=== PATIENT | female | born 1980 | race Caucasian/White ===

== ENCOUNTER 2018-09-05 10:51 | Outpatient (REF) | payer BC, SELFPAY ==
[2018-09-05 21:38] LABS: Anion Gap 9.1 mmol/L (3-11); BUN 14 mg/dL (7-18); CO2 26.9 mmol/L (21.0-32.0); CREATININE 0.63 mg/dL (0.55-1.02); Calcium 9.3 mg/dL (8.5-10.1); Chloride 102 mmol/L (98-107); Glucose 124 mg/dL (70-100); Potassium 4.6 mmol/L (3.5-5.1); Sodium 138 mmol/L (136-145)
[2018-09-05 22:40] LABS: COMMENT (LAB VIEW ONLY) 92.48 mg/dL; Microalb ug/mg Crea 8.4 ug/mg Cr
== END 2018-09-05 11:11 ==
LOC: NCHCN 10:51
PROVIDERS: PCP Nurse Practitioner Family; Visit Provider Nurse Practitioner Family
DX: E11.9 Type 2 diabetes mellitus without complications (principal); R06.83 Snoring; R60.9 Edema, unspecified; M22.2X9 Patellofemoral disorders, unspecified knee
CPT/HCPCS: 80048; 82043; 82570

== ENCOUNTER 2018-09-05 12:24 | Outpatient (REF) | payer BC, SELFPAY | END 2018-09-05 12:44 | LOC: NCHCN 12:24 | PROVIDERS: PCP Nurse Practitioner Family; Visit Provider Nurse Practitioner Family | DX: E11.9 Type 2 diabetes mellitus without complications (principal) ==

== ENCOUNTER 2020-03-26 14:14 | Outpatient (REF) | payer BC, SELFPAY ==
[2020-03-26 21:32] LABS: Mean Corp. HGB Concentration 30.6 g/dL (32.0-36.0); Mean Corpuscular Hemoglobin 21.8 pg (27.0-33.0); Mean Corpuscular Volume 71.4 fL (80-95); Mean Platelet Volume 10.3 fL (8.0-11.0); Platelet Count 447 x1000/uL (130-400); RBC 5.04 m/cumm (4.00-5.20); RBC Distribution Width 16.9 % (11.7-14.6); White Blood Cell Count 10.05 k/cumm (4.4-10.8)
[2020-03-26 22:16] LABS: Anion Gap 7.8 mmol/L (3-11); BUN 10 mg/dL (7-18); CO2 28.2 mmol/L (21.0-32.0); CREATININE 0.82 mg/dL (0.55-1.02); Calcium 9.3 mg/dL (8.5-10.1); Calculated LDL 114 mg/dL (<100); Chloride 101 mmol/L (98-107); Cholesterol 203 mg/dL (<200); Glucose 144 mg/dL (74-106); HDL Cholesterol 68 mg/dL (40-60); Potassium 4.1 mmol/L (3.5-5.1); Sodium 137 mmol/L (136-145); Triglyceride 109 mg/dL (<150); Vitamin B12 386 pg/mL (193-986)
[2020-03-26 22:17] LABS: COMMENT (LAB VIEW ONLY) 110.98 mg/dL; Microalb ug/mg Crea 4.1 ug/mg Cr
== END 2020-03-26 14:34 ==
LOC: NCHCN 14:14
PROVIDERS: PCP Nurse Practitioner Family; Visit Provider Nurse Practitioner Community Health
DX: R51 Headache (principal); E11.9 Type 2 diabetes mellitus without complications; E66.01 Morbid (severe) obesity due to excess calories; Z00.00 Encounter for general adult medical examination without abnormal findings
CPT/HCPCS: 80048; 80061; 85027; 82043; 82570; 82607

== ENCOUNTER 2020-03-31 18:11 | Outpatient (REF) | payer BC, SELFPAY ==
[2020-03-31 21:57] LABS: Ferritin 17 ng/mL (8-252)
== END 2020-03-31 18:31 ==
LOC: NCHCN 18:11
PROVIDERS: PCP Nurse Practitioner Family; Visit Provider Nurse Practitioner Community Health
DX: D74.9 Methemoglobinemia, unspecified (principal)
CPT/HCPCS: 82728

== ENCOUNTER 2020-07-12 22:54 | Outpatient (REF) | payer BC, SELFPAY ==
[2020-07-12 21:55] LABS: HCT 39.4 % (36.0-46.0); HGB 11.7 g/dL (11.2-15.7); MCH 23.8 pg (27.0-33.0); MCHC 29.7 % (32.0-36.0); MCV 80.1 fL (80-95); MPV 10.5 fL (8.0-11.0); Platelet Count 418 10^3/uL (130-400); RBC 4.92 10^6/uL (3.93-5.22); RDW 16.7 % (11.7-14.6); RDW-SD 48.4 fL; WBC 8.23 10^3/uL (4.4-10.8)
[2020-07-12 22:34] LABS: Iron 26 ug/dL (50-170); Total Iron Binding Capacity 307 ug/dL (250-450); Transferrin Sat 8 % (15-50)
[2020-07-12 22:47] LABS: Ferritin 21 ng/mL (8-252)
== END 2020-07-12 23:14 ==
LOC: NCHCN 22:54
PROVIDERS: PCP Nurse Practitioner Family; Visit Provider Nurse Practitioner Family
DX: D50.9 Iron deficiency anemia, unspecified (principal); E11.9 Type 2 diabetes mellitus without complications; L85.3 Xerosis cutis; M22.2X9 Patellofemoral disorders, unspecified knee
CPT/HCPCS: 85027; 82728; 83540; 83550

== ENCOUNTER 2020-09-02 19:37 | Outpatient (REF) | payer BC, SELFPAY ==
[2020-09-02 21:28] LABS: HCT 35.5 % (36.0-46.0); HGB 10.7 g/dL (11.2-15.7); MCH 24.4 pg (27.0-33.0); MCHC 30.1 % (32.0-36.0); MCV 80.9 fL (80-95); MPV 10.2 fL (8.0-11.0); Platelet Count 376 10^3/uL (130-400); RBC 4.39 10^6/uL (3.93-5.22); RDW 15.4 % (11.7-14.6); RDW-SD 45.3 fL
[2020-09-02 21:40] LABS: Iron 27 ug/dL (50-170)
[2020-09-02 21:54] LABS: Ferritin 19 ng/mL (8-252)
== END 2020-09-02 19:57 ==
LOC: NCHCN 19:37
PROVIDERS: PCP Nurse Practitioner Family; Visit Provider Nurse Practitioner Family
DX: D50.9 Iron deficiency anemia, unspecified (principal)
CPT/HCPCS: 85027; 82728; 83540

== ENCOUNTER 2020-11-04 15:08 | Outpatient (REF) | payer BC, SELFPAY ==
[2020-11-04 14:24] LABS: HCT 37.4 % (36.0-46.0); HGB 11.8 g/dL (11.2-15.7); MCHC 31.6 % (32.0-36.0); MCV 79.2 fL (80-95); MPV 10.4 fL (8.0-11.0); Platelet Count 369 10^3/uL (130-400); RBC 4.72 10^6/uL (3.93-5.22); RDW 15.1 % (11.7-14.6); RDW-SD 43.3 fL; WBC 8.37 10^3/uL (4.4-10.8)
[2020-11-04 15:50] LABS: Iron 37 ug/dL (50-170); Total Iron Binding Capacity 295 ug/dL (250-450); Transferrin Sat 13 % (15-50)
[2020-11-04 16:03] LABS: Ferritin 35 ng/mL (8-252)
== END 2020-11-04 15:09 | disposition home or self-care (01) ==
LOC: NCHCN 15:08
PROVIDERS: PCP Nurse Practitioner Family; Visit Provider Nurse Practitioner Family
DX: D50.9 Iron deficiency anemia, unspecified (principal)
CPT/HCPCS: 85027; 82728; 83540; 83550

== ENCOUNTER 2021-01-13 17:44 | Outpatient (REF) | payer BC, SELFPAY ==
[2021-01-13 13:40] LABS: HCT 38.9 % (36.0-46.0); MCH 25.4 pg (27.0-33.0); MCHC 30.8 % (32.0-36.0); MCV 82.4 fL (80-95); MPV 10.3 fL (8.0-11.0); Platelet Count 403 10^3/uL (130-400); RBC 4.72 10^6/uL (3.93-5.22); RDW 14.5 % (11.7-14.6); RDW-SD 44.3 fL; WBC 8.34 10^3/uL (4.4-10.8)
[2021-01-13 14:03] LABS: Ferritin 30 ng/mL (8-252)
[2021-01-17 13:04] LABS: IgA 200 mg/dL (85-499); Interpretation (See Note); Tissue Transglutaminase IgA <1.2 U/mL (<4.0)
== END 2021-01-13 17:45 | disposition home or self-care (01) ==
LOC: NCHCN 17:44
PROVIDERS: PCP Nurse Practitioner Family; Visit Provider Nurse Practitioner Family
DX: E11.9 Type 2 diabetes mellitus without complications (principal); D50.9 Iron deficiency anemia, unspecified; L30.9 Dermatitis, unspecified
CPT/HCPCS: 82784; 83516; 85027; 82728

== ENCOUNTER 2021-07-12 14:34 | Outpatient (REF) | payer BC, SELFPAY ==
[2021-07-12 15:21] LABS: HCT 41.1 % (36.0-46.0); HGB 12.6 g/dL (11.2-15.7); MCH 24.4 pg (27.0-33.0); MCHC 30.7 % (32.0-36.0); MCV 79.7 fL (80-95); MPV 10.8 fL (8.0-11.0); Platelet Count 351 10^3/uL (130-400); RBC 5.16 10^6/uL (3.93-5.22); RDW 14.3 % (11.7-14.6); RDW-SD 40.9 fL; WBC 7.94 10^3/uL (4.4-10.8)
[2021-07-12 15:57] LABS: Anion Gap 5.7 mmol/L (3-11); BUN 10 mg/dL (7-18); CO2 31.3 mmol/L (21.0-32.0); CREATININE 0.7 mg/dL (0.55-1.02); Calcium 9.2 mg/dL (8.5-10.1); Chloride 103 mmol/L (98-107); Glucose 323 mg/dL (74-106); Potassium 4.4 mmol/L (3.5-5.1); Sodium 140 mmol/L (136-145)
[2021-07-12 16:13] LABS: Hemoglobin A1C 12.3 % (<5.7)
[2021-07-14 04:58] LABS: Vitamin D 25 Total 17.6 ng/mL (30-100)
[2021-07-14 14:11] LABS: Iron 28 ug/dL (50-170); Total Iron Binding Capacity 268 ug/dL (250-450); Transferrin Sat 10 % (15-50)
[2021-07-14 14:37] LABS: Ferritin 39 ng/mL (8-252); Vitamin B12 683 pg/mL (193-986)
== END 2021-07-12 14:35 | disposition home or self-care (01) ==
LOC: NCHCN 14:34
PROVIDERS: PCP Nurse Practitioner Family; Visit Provider Nurse Practitioner Family
DX: E11.9 Type 2 diabetes mellitus without complications (principal); R06.83 Snoring; R53.83 Other fatigue; Z86.2 Personal history of diseases of the blood and blood-forming organs and certain disorders involving the immune mechanism
CPT/HCPCS: 80048; 82306; 85027; 82607; 82728; 83036

== ENCOUNTER 2021-10-18 17:10 | Outpatient (REF) | payer BC, SELFPAY ==
[2021-10-18 21:48] LABS: Hemoglobin A1C 8.3 % (<5.7)
[2021-10-20 05:55] LABS: Vitamin D 25 Total 25.4 ng/mL (30-100)
== END 2021-10-18 17:11 | disposition home or self-care (01) ==
LOC: NCHCN 17:10
PROVIDERS: PCP Nurse Practitioner Family; Visit Provider Nurse Practitioner Family
DX: E11.9 Type 2 diabetes mellitus without complications (principal); E55.9 Vitamin D deficiency, unspecified
CPT/HCPCS: 82306; 83036

== ENCOUNTER 2021-10-20 11:48 | Outpatient (REF) | payer BC, SELFPAY ==
[2021-10-20 15:23] LABS: COMMENT (LAB VIEW ONLY) 138.26 mg/dL; Microalb ug/mg Crea 3.6 ug/mg Cr
== END 2021-10-20 11:49 | disposition home or self-care (01) ==
LOC: NCHCN 11:48
PROVIDERS: PCP Nurse Practitioner Family; Visit Provider Nurse Practitioner Family
DX: E11.9 Type 2 diabetes mellitus without complications (principal)
CPT/HCPCS: 82043; 82570

== ENCOUNTER 2022-02-16 10:13 | Outpatient (REF) | payer BC, SELFPAY ==
[2022-02-16 21:03] LABS: HCT 40.7 % (36.0-46.0); HGB 12.8 g/dL (11.2-15.7); MCH 25.9 pg (27.0-33.0); MCHC 31.4 % (32.0-36.0); MCV 82 fL (80-95); Platelet Count 446 10^3/uL (130-400); RBC 4.94 10^6/uL (3.93-5.22); RDW 14.6 % (11.7-14.6); RDW-SD 43.8 fL; WBC 11.37 10^3/uL (4.4-10.8)
[2022-02-16 21:09] LABS: Iron 27 ug/dL (50-170); Total Iron Binding Capacity 298 ug/dL (250-450); Transferrin Sat 9 % (15-50)
[2022-02-16 21:25] LABS: Hemoglobin A1C 7.6 % (<5.7)
[2022-02-16 21:31] LABS: ALT 32 U/L (14-59); AST 17 U/L (15-37); Albumin 3.5 g/dL (3.4-5.0); Alkaline Phosphatase 136 U/L (46-116); Anion Gap 7.8 mmol/L (3-11); BUN 17 mg/dL (7-18); Bilirubin, Total 0.2 mg/dL (0.2-1.0); CO2 29.2 mmol/L (21.0-32.0); CREATININE 0.8 mg/dL (0.55-1.02); Calcium 9.2 mg/dL (8.5-10.1); Chloride 99 mmol/L (98-107); Glucose 207 mg/dL (74-106); Potassium 4.7 mmol/L (3.5-5.1); Sodium 136 mmol/L (136-145); Total Protein 7.8 g/dL (6.4-8.2)
[2022-02-16 21:32] LABS: Vitamin D 25 Total 21.6 ng/mL (30-100)
== END 2022-02-16 10:14 | disposition home or self-care (01) ==
LOC: NCHCN 10:13
PROVIDERS: PCP Nurse Practitioner Family; Visit Provider Nurse Practitioner Family
DX: E55.9 Vitamin D deficiency, unspecified (principal); E11.9 Type 2 diabetes mellitus without complications; E66.01 Morbid (severe) obesity due to excess calories; Z86.2 Personal history of diseases of the blood and blood-forming organs and certain disorders involving the immune mechanism
CPT/HCPCS: 80053; 82306; 85027; 83036; 83540; 83550

== ENCOUNTER 2023-04-19 14:51 | Outpatient (REF) | payer BC, SELFPAY ==
[2023-04-19 21:04] LABS: HCT 38.5 % (36.0-46.0); HGB 12.1 g/dL (11.2-15.7); MCH 25.1 pg (27.0-33.0); MCHC 31.4 % (32.0-36.0); MCV 80 fL (80-95); Platelet Count 382 10^3/uL (130-400); RBC 4.82 10^6/uL (3.93-5.22); RDW-SD 40.4 fL; WBC 9.69 10^3/uL (4.4-10.8)
[2023-04-19 21:14] LABS: Iron 30 ug/dL (50-170); Total Iron Binding Capacity 254 ug/dL (250-450); Transferrin Sat 12 % (15-50)
[2023-04-19 21:17] LABS: ALT 22 U/L (14-59); AST 12 U/L (15-37); Albumin 3.3 g/dL (3.4-5.0); Alkaline Phosphatase 123 U/L (46-116); Anion Gap 6.7 mmol/L (3-11); BUN 12 mg/dL (7-18); Bilirubin, Total 0.3 mg/dL (0.2-1.0); CO2 31.3 mmol/L (21.0-32.0); CREATININE 0.7 mg/dL (0.55-1.02); Calculated LDL 115 mg/dL (<100); Chloride 102 mmol/L (98-107); Cholesterol 201 mg/dL (<200); Estimated GFR 110.67 (mL/min/1.73m2); Glucose 200 mg/dL (74-106); HDL Cholesterol 70 mg/dL (40-60); Sodium 140 mmol/L (136-145); Total Protein 7.3 g/dL (6.4-8.2); Triglyceride 84 mg/dL (<150)
[2023-04-19 21:21] LABS: COMMENT (LAB VIEW ONLY) 125.43 mg/dL; Microalb ug/mg Crea 6.5 ug/mg Cr
[2023-04-19 21:28] LABS: Hemoglobin A1C 8.8 % (<5.7)
[2023-04-19 21:37] LABS: Vitamin D 25 Total 14.6 ng/mL (30-100)
== END 2023-04-19 14:52 | disposition home or self-care (01) ==
LOC: NCHCN 14:51
PROVIDERS: PCP Nurse Practitioner Family; Visit Provider Nurse Practitioner Family
DX: E11.9 Type 2 diabetes mellitus without complications (principal); E55.9 Vitamin D deficiency, unspecified; R53.83 Other fatigue; E66.01 Morbid (severe) obesity due to excess calories; Z86.2 Personal history of diseases of the blood and blood-forming organs and certain disorders involving the immune mechanism
CPT/HCPCS: 80053; 80061; 82306; 85027; 82043; 82570; 83036; 83540; 83550

== ENCOUNTER 2024-04-15 17:57 | Outpatient (REF) | payer BC, SELFPAY ==
[2024-04-15 21:21] LABS: HCT 36.6 % (36.0-46.0); HGB 11.6 g/dL (11.2-15.7); MCH 25.5 pg (27.0-33.0); MCHC 31.7 % (32.0-36.0); MCV 80 fL (80-95); MPV 10.2 fL (8.0-11.0); Platelet Count 355 10^3/uL (130-400); RBC 4.55 10^6/uL (3.93-5.22); RDW 14.6 % (11.7-14.6); RDW-SD 42.5 fL; WBC 8.81 10^3/uL (4.4-10.8)
[2024-04-15 21:48] LABS: COMMENT (LAB VIEW ONLY) 112.92 mg/dL; Microalb ug/mg Crea 16.1 ug/mg Cr
[2024-04-15 21:50] LABS: Iron 24 ug/dL (50-170); Total Iron Binding Capacity 302 ug/dL (250-450); Transferrin Sat 8 % (15-50)
[2024-04-15 21:56] LABS: ALT 23 U/L (14-59); AST 16 U/L (15-37); Alkaline Phosphatase 100 U/L (46-116); BUN 13 mg/dL (7-18); CREATININE 0.6 mg/dL (0.55-1.02); Calcium 8.6 mg/dL (8.5-10.1); Calculated LDL 78 mg/dL (<100); Chloride 105 mmol/L (98-107); Cholesterol 174 mg/dL (<200); Estimated GFR 114.15 (mL/min/1.73m2); Glucose 156 mg/dL (74-106); HDL Cholesterol 76 mg/dL (40-60); Sodium 140 mmol/L (136-145); TSH 1.34 uIU/Ml (0.36-3.74); Total Protein 7.3 g/dL (6.4-8.2); Triglyceride 104 mg/dL (<150); Vitamin D 25 Total 16.9 ng/mL (30-100)
== END 2024-04-15 17:58 | disposition home or self-care (01) ==
LOC: NCHCN 17:57
PROVIDERS: PCP Nurse Practitioner Family; Visit Provider Nurse Practitioner Family
DX: E11.9 Type 2 diabetes mellitus without complications (principal); E55.9 Vitamin D deficiency, unspecified; Z86.2 Personal history of diseases of the blood and blood-forming organs and certain disorders involving the immune mechanism; Z13.29 Encounter for screening for other suspected endocrine disorder; R79.89 Other specified abnormal findings of blood chemistry
CPT/HCPCS: 80053; 80061; 82306; 85027; 82043; 82570; 83540; 83550; 84443

== ENCOUNTER 2024-05-27 17:12 | Outpatient (REF) | payer BC, SELFPAY | END 2024-05-27 17:13 | disposition home or self-care (01) | LOC: NCHCN 17:12 | PROVIDERS: PCP Nurse Practitioner Family; Visit Provider Nurse Practitioner Family | DX: L08.9 Local infection of the skin and subcutaneous tissue, unspecified (principal); B95.62 Methicillin resistant Staphylococcus aureus infection as the cause of diseases classified elsewhere | CPT/HCPCS: 87077; 87070; 87186; 87205 ==

== ENCOUNTER 2024-10-21 13:33 | Outpatient (REF) | payer BC, SELFPAY ==
[2024-10-21 16:19] LABS: HGB 11.6 g/dL (11.2-15.7); MCH 25.2 pg (27.0-33.0); MCHC 31.4 % (32.0-36.0); MCV 80 fL (80-95); MPV 10.3 fL (8.0-11.0); Platelet Count 402 10^3/uL (130-400); RBC 4.61 10^6/uL (3.93-5.22); RDW 14.6 % (11.7-14.6); WBC 8.79 10^3/uL (4.4-10.8)
[2024-10-21 16:54] LABS: Iron 28 ug/dL (50-170); Total Iron Binding Capacity 276 ug/dL (250-450); Transferrin Sat 10 % (15-50)
[2024-10-21 17:10] LABS: ALT 24 U/L (14-59); AST 15 U/L (15-37); Alkaline Phosphatase 138 U/L (46-116); Anion Gap 12.9 mmol/L (3-11); BUN 17 mg/dL (7-18); Bilirubin, Total 0.23 mg/dL (0.2-1.0); CO2 24.1 mmol/L (21.0-32.0); CREATININE 0.7 mg/dL (0.55-1.02); Calculated LDL 55 mg/dL (<100); Chloride 103 mmol/L (98-107); Cholesterol 135 mg/dL (<200); Estimated GFR 109.98 (mL/min/1.73m2); Glucose 287 mg/dL (74-106); HDL Cholesterol 66 mg/dL (40-60); Potassium 4.6 mmol/L (3.5-5.1); Sodium 140 mmol/L (136-145); Triglyceride 71 mg/dL (<150); Vitamin D 25 Total 37.8 ng/mL (30-100)
[2024-10-21 23:30] LABS: HIV-1/2 Ag & Ab Screen Negative (Negative)
[2024-10-23 10:04] LABS: Hepatitis C Ab w Rflx HCV PCR Negative (Negative)
== END 2024-10-21 13:34 | disposition home or self-care (01) ==
LOC: NCHCN 13:33
PROVIDERS: PCP Nurse Practitioner Family; Visit Provider Nurse Practitioner Family
DX: Z86.2 Personal history of diseases of the blood and blood-forming organs and certain disorders involving the immune mechanism (principal); E55.9 Vitamin D deficiency, unspecified; E11.9 Type 2 diabetes mellitus without complications; Z11.3 Encounter for screening for infections with a predominantly sexual mode of transmission
CPT/HCPCS: 80053; 80061; 82306; 85027; 86803; 87389; 83540; 83550